=== PATIENT | male | born 1990 | race Caucasian/White ===

== ENCOUNTER 2017-05-17 13:27 | Emergency (ER) | payer OTHER ==
[~2017-05-17] VITALS: Ht 180.3 cm; Wt 92.9 kg
[2017-05-17] MEDS ORDERED: AUGMENTIN875 MG PO (16:16)
[2017-05-17 16:43] VITALS: BP 125/80
== END 2017-05-17 16:44 | disposition home or self-care (01) ==
LOC: EME 13:27
DX: S01.511A Laceration without foreign body of lip, initial encounter (principal); S01.81XA Laceration without foreign body of other part of head, initial encounter; W50.0XXA Accidental hit or strike by another person, initial encounter; Y99.0 Civilian activity done for income or pay
CPT/HCPCS: 99281; 99283